=== PATIENT | female | born 1980 | race Caucasian/White ===

== ENCOUNTER 2016-07-28 01:22 | Emergency (ER) | payer BC ==
[2016-07-28 01:34] VITALS: BP 126/84
[2016-07-28] MEDS ORDERED: Ketorolac 60 MG/2 ML SDV IM ONE (01:35)
--- NOTE | 2016-07-28 02:12 | EDM.PDOC ---
ED HPI GENERAL MEDICAL PROBLEM - General Chief Complaint: Headache Stated Complaint: HEADACHE Time Seen by Provider: 07/28/16 02:10 - History of Present Illness INITIAL COMMENTS - FREE TEXT/NARRATIVE: HISTORY AND PHYSICAL: History of present illness: Patient 36-year-old female presents with headache his vaguely described associated fever chills nausea vomiting she denies trauma denies other concern is no history of migraine Review of systems: As per history of present illness and below otherwise all systems reviewed and negative. Past medical history: As per history of present illness and as reviewed below otherwise noncontributory. Surgical history: As per history of present illness and as reviewed below otherwise noncontributory. Social history: No reported history of drug or alcohol abuse. Family history: As per history of present illness and as reviewed below otherwise noncontributory. Physical exam: HEENT: Atraumatic, normocephalic, pupils reactive, negative for conjunctival pallor or scleral icterus, mucous membranes moist, throat clear, neck supple, nontender, trachea midline. Lungs: Clear to auscultation, breath sounds equal bilaterally, chest nontender. Heart: S1S2, regular, negative for clicks, rubs, or JVD. Abdomen: Soft, nondistended, nontender. Negative for masses or hepatosplenomegaly. Negative for costovertebral tenderness. Pelvis: Stable nontender. Genitourinary: Deferred. Rectal: Deferred. Extremities: Atraumatic, negative for cords or calf pain. Neurovascular unremarkable. Neuro: Awake, alert, oriented. Cranial nerves II through XII unremarkable. Cerebellum unremarkable. Motor and sensory unremarkable throughout. Exam nonfocal. Diagnostics: CT brain Therapeutics: None Impression: #1 cephalgia #2 maxillary sinus Definitive disposition and diagnosis as appropriate pending reevaluation and review of above. head Pain Score (Numeric/FACES): 8 - Related Data Allergies Allergy/AdvReac Type Severity Reaction Status Date / Time latex Allergy Itching Verified 07/28/16 01:26 Home Meds: Home Meds ClonazePAM [KlonoPIN] 0.5 mg PO BID 07/28/16 [History] Ferrous Sulfate [Iron] 325 mg PO DAILY 07/28/16 [History] Past Medical History HEENT History: Reports: None Cardiovascular History: Reports: None Respiratory History: Reports: None Gastrointestinal History: Reports: Celiac disease Genitourinary History: Reports: None DEATH CLAIM EXAMINER History: Reports: None Musculoskeletal History: Reports: None Neurological History: Reports: None Psychiatric History: Reports: Anxiety Hematologic History: Reports: Anemia Oncologic (Cancer) History: Reports: None Dermatologic History: Reports: None - Infectious Disease History Infectious Disease History: Reports: None - Past Surgical History Female Surgical History: Reports: None Social & Family History - Family History Family Medical History: Noncontributory - Tobacco Use Smoking Status *Q: Current Every Day Smoker Years of Tobacco use: 15 Packs/Tins Daily: 1 - Alcohol Use Days Per Week of Alcohol Use: 0 - Recreational Drug Use Recreational Drug Use: No ED ROS GENERAL - Review of Systems Review Of Systems: ROS reveals no pertinent complaints other than HPI. ED EXAM, GENERAL - Physical Exam Exam: See Below (See dictation) Course - Vital Signs Last Recorded V/S: Last Vital Signs Temp 36.9 C 07/28/16 01:28 Pulse 97 07/28/16 01:28 Resp 16 07/28/16 01:28 BP 126/84 07/28/16 01:28 Pulse Ox 97 07/28/16 01:28 - Orders/Labs/Meds Orders: Active Orders 24 hr Category Date Time Status Head wo Cont [CT] Stat Exams 07/28/16 01:35 Taken Meds: Medications Discontinued Medications Generic Name Dose Route Start Last Admin Trade Name Yokasta PRN Reason Stop Dose Admin Ketorolac Tromethamine 60 mg 07/28/16 01:35 07/28/16 01:41 Toradol IM 07/28/16 01:36 60 mg ONETIME ONE Administration Departure - Departure Time of Disposition: 02:11 Disposition: Home, Self-Care 01 Condition: good Clinical Impression: Maxillary sinusitis, Cephalgia Forms: ED Department Discharge Additional Instructions: The following information is given to patients seen in the emergency department who are being discharged to home. This information is to outline your options for follow-up care. We provide all patients seen in our emergency department with a follow-up referral. The need for follow-up, as well as the timing and circumstances, are variable depending upon the specifics of your emergency department visit. If you don't have a primary care physician on staff, we will provide you with a referral. We always advise you to contact your personal physician following an emergency department visit to inform them of the circumstance of the visit and for follow-up with them and/or the need for any referrals to a consulting specialist. The emergency department will also refer you to a specialist when appropriate. This referral assures that you have the opportunity for followup care with a specialist. All of these measure are taken in an effort to provide you with optimal care, which includes your followup. Under all circumstances we always encourage you to contact your private physician who remains a resource for coordinating your care. When calling for followup care, please make the office aware that this follow-up is from your recent emergency room visit. If for any reason you are refused follow-up, please contact the [facility] emergency department at and asked to speak to the emergency department charge nurse. [facility] [address] [place] [id number] Augmentin as prescribed follow up primary medical doctor or clinic above is discussed with her Tylenol as directed return as needed as discussed - My Orders Last 24 Hours: My Active Orders 07/28/16 01:35 Head wo Cont [CT] Stat - Assessment/Plan Last 24 Hours: My Active Orders 07/28/16 01:35 Head wo Cont [CT] Stat
--- NOTE | 2016-07-29 18:22 | CT ---
EXAM DATE: 07/28/16 PATIENT'S AGE: 36 Patient: DANICA ANNE Facility: [place], [place] Site . Site : 1980 Study: CT Head [id number] 2:01:17 AM Ordering Physician: Doctor Hernandez Final Report: INDICATION: Headache and dizziness TECHNIQUE: CT head without contrast. COMPARISON: None FINDINGS: CSF spaces: Within normal limits for age. Brain parenchyma: The butts-white differentiation is normal. No sign of mass, hemorrhage, or midline shift. Skull base and calvarium: Bilateral mild maxillary sinus mucosal thickening with obstruction of the ostiomeatal complexes. The visualized orbits are grossly unremarkable. No skull fractures. IMPRESSION: No intracranial abnormalities. Mild bilateral maxillary sinus mucosal thickening with obstruction of the ostiomeatal complexes. Dictated by Ozzy Almendarez MD @ 07/28/2016 2:04:04 AM Dictated by: Ozzy Almendarez MD @ 07/28/2016 02:04:30 (Electronic Signature) Report Signed by Proxy and Original Signed Document filed in the Medical Record. [facility]
== END 2016-07-28 02:38 | disposition home or self-care (01) ==
LOC: MW.ED 01:22
DX: J32.0 Chronic maxillary sinusitis (principal); R51 Headache; F41.9 Anxiety disorder, unspecified; F17.210 Nicotine dependence, cigarettes, uncomplicated; Z91.040 Latex allergy status; Z79.899 Other long term (current) drug therapy
CPT/HCPCS: 70450; 96372; 99284; J1885; 99283

== ENCOUNTER 2018-10-14 07:51 | Day surgery (SDC) | payer BC ==
[~2018-10-14 07:51] MED LIST: Glycopyrrolate 0.2 MG/ML SDV ONE; Lidocaine 2% 5 ML SDV ONE; Midazolam 1 MG/ML 2 ML SDV ONE; Neostigmine Methylsulfate 1 MG/ML 5 ML Syringe ONE; Ondansetron 4 MG/2 ML SDV ONE; Propofol 200 MG/20 ML SDV ONE; Rocuronium 100 MG/10 ML Syringe ONE; fentaNYL 250 MCG/5 ML SDV ONE
[2018-10-14] MEDS ORDERED: Ketorolac 10 MG Tab PO PRN (08:00)
[2018-10-14] MEDS ORDERED: ceFAZolin 1 GM in Premix Bag 1 BAG IV SCH (08:00)
[2018-10-14] MEDS ORDERED: Acetaminophen/HYDROcodone 325-10 MG Tab PO PRN (08:00)
[2018-10-14] MEDS ORDERED: fentaNYL 100 MCG/2 ML SDV IVPUSH PRN (08:34)
[2018-10-14] MEDS ORDERED: Albuterol 0.083% 2.5 MG/3 ML Neb Soln NEB PRN (08:34)
[2018-10-14] MEDS ORDERED: Atropine 0.1 MG/ML 10 ML Syringe IVPUSH PRN ×2 (08:34)
[2018-10-14] MEDS ORDERED: EPINEPHrine 1:10,000 1 MG/10 ML Syringe IVPUSH PRN (08:34)
[2018-10-14] MEDS ORDERED: Naloxone 0.4 MG/ML Syringe IVPUSH PRN (08:34)
[2018-10-14] MEDS ORDERED: 50% Dextrose in Water 50 ML Syringe IVPUSH PRN (08:34)
--- NOTE | 2018-10-14 08:47 | PCM.PREANE ---
Preanesthetic Assessment - Anesthesia/Transfusion/Family Hx Anesthesia History: Prior Anesthesia Without Reaction Family History of Anesthesia Reaction: No Transfusion History: No Prior Transfusion(s) - Review of Systems General: No Symptoms Pulmonary: No Symptoms Cardiovascular: No Symptoms Other: Reports: Anxiety - Physical Assessment NPO Status Date: 10/13/18 Height: 5 ft 5.5 in Weight: 72.575 kg ASA Class: 2 Mental Status: Alert & Oriented x3 Airway Class: Mallampati = 3 Dentition: Reports: Normal Dentition ROM/Head Extension: Full Lungs: Clear to Auscultation, Normal Respiratory Effort Cardiovascular: Regular Rate, Regular Rhythm - Allergies Allergies/Adverse Reactions: Allergies Allergy/AdvReac Type Severity Reaction Status Date / Time latex Allergy Itching Verified 10/08/18 10:11 - Blood Blood Available: No - Anesthesia Plan Pre-Op Medication Ordered: None - Acknowledgements Anesthesia Type Planned: General Anesthesia Pt an Appropriate Candidate for the Planned Anesthesia: Yes Alternatives and Risks of Anesthesia Discussed w Pt/Guardian: Yes Pt/Guardian Understands and Agrees with Anesthesia Plan: Yes Additional Comments: PMH: smoker, celiac dz, ADHD, anxiety, latex sensative PLAN: get, consider ICS block post op if needed. PreAnesthesia Questionnaire HEENT History: Reports: Other (See Below) Other HEENT History: wears glasses/contacts Cardiovascular History: Reports: None Respiratory History: Reports: None Gastrointestinal History: Reports: Celiac Disease Genitourinary History: Reports: None MANAGER DISTRIBUTION History: Reports: Musculoskeletal History: Reports: None Neurological History: Reports: None Psychiatric History: Reports: ADD, Anxiety Endocrine/Metabolic History: Reports: None Hematologic History: Reports: Anemia Immunologic History: Reports: None Oncologic (Cancer) History: Reports: None Dermatologic History: Reports: None - Infectious Disease History Infectious Disease History: Reports: None - Past Surgical History Head Surgeries/Procedures: Reports: None HEENT Surgical History: Reports: None Cardiovascular Surgical History: Reports: None Respiratory Surgical History: Reports: None GI Surgical History: Reports: None Female Surgical History: Reports: Section, Other (See Below) Other Female Surgeries/Procedures: c/section x2, laparotomy for ovarian cystectomy Endocrine Surgical History: Reports: None Neurological Surgical History: Reports: Lumbar Spine Other Neurological Surgeries/Procedures: back surgery x4 Musculoskeletal Surgical History: Reports: Other (See Below) Other Musculoskeletal Surgeries/Procedures:: brandon foot surgery Oncologic Surgical History: Reports: None Dermatological Surgical History: Reports: None - SUBSTANCE USE Smoking Status *Q: Current Every Day Smoker Tobacco Use Within Last Twelve Months: Cigarettes Days Per Week of Alcohol Use: 5 Number of Drinks Per Day: 2 Total Drinks Per Week: 10 Recreational Drug Use History: No - HOME MEDS Home Medications: Home Meds ClonazePAM [KlonoPIN] 0.5 mg PO BID PRN 07/28/16 [History] Dextroamphetamine/Amphetamine [Adderall 5 mg Tablet] 2 tab PO DAILY 10/08/18 [ History] traMADol HCl [Tramadol HCl] 1 - 2 tab PO ASDIRECTED PRN 10/08/18 [History] Multivitamin [Multivitamins] 1 tab PO DAILY 10/14/18 [History] Naproxen 2 tab PO BID PRN 10/14/18 [History] - CURRENT (IN HOUSE) MEDS Current Meds: Current Medications Hydrocodone Bitart/Acetaminophen (Battiest 325-10 Mg) 1 - 2 tab PO Q4H PRN PRN Reason: Pain Albuterol (Proventil Neb Soln) 2.5 mg NEB ONETIME PRN PRN Reason: Wheezing Atropine Sulfate (Atropine 0.1 Mg/Ml) 0.5 mg IVPUSH ASDIRECTED PRN PRN Reason: Hypo-perfusion Atropine Sulfate (Atropine 0.1 Mg/Ml) 1 mg IVPUSH ASDIRECTED PRN PRN Reason: Hypo-Perfusion Dextrose/Water (Dextrose 50% In Water) 50 ml IVPUSH ASDIRECTED PRN PRN Reason: Hypoglycemia Epinephrine HCl (Epinephrine 1:10,000) 1 mg IVPUSH ASDIRECTED PRN PRN Reason: ACLS Guidelines Fentanyl (Sublimaze) 50 - 100 mcg IVPUSH Q5M PRN PRN Reason: Pain Cefazolin Sodium/Dextrose 1 gm (/ Premix) 50 mls @ 100 mls/hr IV ONCALL VENITA Ketorolac Tromethamine (Toradol) 10 mg PO Q6H PRN PRN Reason: Pain Stop: 10/19/18 08:01 Naloxone HCl (Narcan) 0.1 mg IVPUSH ASDIRECTED PRN PRN Reason: Respiratory Depression Discontinued Medications Fentanyl (Sublimaze) Confirm Administered Dose 250 mcg .ROUTE .STK-MED ONE Stop: 10/14/18 06:52 Glycopyrrolate (Robinul) Confirm Administered Dose 0.4 mg .ROUTE .STK-MED ONE Stop: 10/14/18 06:51 Lidocaine (Xylocaine-Mpf 2%) Confirm Administered Dose 5 ml .ROUTE .STK-MED ONE Stop: 10/14/18 06:51 Midazolam HCl (Versed 1 Mg/Ml) Confirm Administered Dose 2 mg .ROUTE .STK-MED ONE Stop: 10/14/18 06:52 Neostigmine Methylsulfate (Neostigmine) Confirm Administered Dose 5 mg .ROUTE .STK-MED ONE Stop: 10/14/18 06:51 Ondansetron HCl (Zofran) Confirm Administered Dose 4 mg .ROUTE .STK-MED ONE Stop: 10/14/18 06:51 Propofol (Diprivan 20 Ml) Confirm Administered Dose 200 mg .ROUTE .STK-MED ONE Stop: 10/14/18 06:52 Rocuronium [place] (Zemuron) Confirm Administered Dose 100 mg .ROUTE .STK-MED ONE Stop: 10/14/18 06:51
[2018-10-14] MEDS ORDERED: Sodium Chloride 0.9% 20 ML ONE (09:46)
[2018-10-14] MEDS ORDERED: ceFAZolin 1 GM Vial ONE (09:46)
[2018-10-14] MEDS ORDERED: Lactated Ringers 1,000 ML IV SCH (10:45)
--- NOTE | 2018-10-14 10:46 | PCM.OPNOTE ---
- General Post-Op/Procedure Note Date of Surgery/Procedure: 10/14/18 Operative Procedure(s): R shoulder scope with extensive synovectomy and SAD Post-Op Diagnosis: R shoulder impingement, R shoulder biceps tenotomy, R shoulder anterior labral tear Anesthesia Technique: General ET Tube Primary Surgeon: Pamella Bales Steam Hammer Operator: Leslie Mandujano in mLs: 5 Condition: Good Free Text/Narrative:: #[id number]
[2018-10-14] MEDS ORDERED: HYDROmorphone 2 MG/ML Syringe IVPUSH ONE (11:06)
[2018-10-14] MEDS ORDERED: HYDROmorphone 2 MG/ML SDV IVPUSH ONE (11:08)
[2018-10-14] MEDS ORDERED: Ketorolac 30 MG/ML SDV IVPUSH ONE (11:09)
[2018-10-14] MEDS ORDERED: Acetaminophen 1,000 MG in Premix Bag 1 BAG IV ONE (11:09)
[2018-10-14] MEDS ORDERED: Ketamine 500 mg/10 ML MDV IV PRN (11:10)
[2018-10-14] MEDS ORDERED: Ketamine 500 mg/10 ML MDV ONE (11:14)
[2018-10-14] MEDS ORDERED: Ketorolac 30 MG/ML SDV ONE (11:14)
[2018-10-14] MEDS ORDERED: Dexamethasone 4 MG/ML 5 ML MDV ONE (11:44)
[2018-10-14] MEDS ORDERED: Bupivacaine 0.5% 30 ML SDV ONE (11:45)
--- NOTE | 2018-10-14 12:07 | PCM.SN ---
- Free Text/Narrative Note: procedure note: ISB block plced in PACu for post op pain. Pain poorly controlled with dilaudid, tylenol, toradol and ketamine. Pt had been given discussion about risks and benefits of block before surgery. Pt chooses to have a block placed now. Verbal consent obtained, time out performed, skin antisepsis with alcohol, local anesthesia with lidocaine skin wheel. Block needle placed with good twitch extinguishing at <.38. Dosed in 5 ml increments of 0.5% bupivicaine wih dexamethasone. Total volume of 25 ml 0.5% bupiv plus 8 mg dexamethasone. Pt received immediate relief. No comps.
--- NOTE | 2018-10-14 12:55 | PCM.POSTAN ---
POST ANESTHESIA ASSESSMENT - MENTAL STATUS Mental Status: Alert (No anesthesia complications), Oriented - RESPIRATORY Respiratory Status: Respiratory Rate WNL, Airway Patent, O2 Saturation Stable, Elevated Respiratory Rate - CARDIOVASCULAR CV Status: Pulse Rate WNL, Blood Pressure Stable, Elevated Pulse Rate - GASTROINTESTINAL GI Status: No Symptoms - POST OP HYDRATION Hydration Status: Adequate & Stable
--- NOTE | 2018-10-14 14:28 | PCM48HPAN ---
Post Anesthesia Note - EVALUATION WITHIN 48HRS OF ANESTHETIC Vital Signs in Normal Range: Yes Patient Participated in Evaluation: Yes Respiratory Function Stable: Yes Airway Patent: Yes Cardiovascular Function Stable: Yes Hydration Status Stable: Yes Pain Control Satisfactory: Yes Nausea and Vomiting Control Satisfactory: Yes Mental Status Recovered: Yes Resp Rate: 16 - COMMENTS/OBSERVATIONS Free Text/Narrative:: No anesthesia concerns noted.
--- NOTE | 2018-10-14 15:23 | OR ---
SURGEON: Pamella Bales MD DATE OF PROCEDURE: 10/14/2018 PREOPERATIVE DIAGNOSIS: Right shoulder impingement. POSTOPERATIVE DIAGNOSES: 1. Right shoulder impingement. 2. Right shoulder biceps tendinitis. 3. Right shoulder degenerative anterior labral tear. 4. Right shoulder partial rotator cuff tear. PROCEDURE PERFORMED: Right shoulder arthroscopy with: 1. Subacromial decompression with release of coracoacromial ligament and acromioplasty. 2. Extensive debridement including debridement of degenerative anterior labral tear and biceps tenotomy. PRIMARY SURGEON: Pamella Bales MD CONTACT LENS MANUFACTURER: Leslie Mandujano PA-C ANESTHESIA: General. ESTIMATED BLOOD LOSS: 5 mL. TOURNIQUET TIME: 0 minutes. COMPLICATIONS: None. DEEP VENOUS THROMBOSIS PROPHYLAXIS: PAS boots to bilateral lower extremities. IMPLANTS USED: None. BRIEF HISTORY: Criselda is a 38-year-old female who has been bothered by persistent right shoulder pain. She had failed conservative treatment. Due to her lack of response to conservative treatment, I did recommend surgical intervention. The risks and goals of the procedure were discussed with the patient and were documented preoperatively. She agreed to proceed. DESCRIPTION OF PROCEDURE: The patient was properly identified and brought to the operating room. She was transferred from the OR cart and placed on the operating table in the supine position. General anesthesia was administered. After adequate anesthesia was obtained, the patient was placed into a beach-chair position. Care was taken to pad all bony prominences. Her head was secured. The right upper extremity was then prepped in standard fashion using ChloraPrep solution. It was then sterilely draped. A time-out was performed to ensure correct site and procedure. Preoperative antibiotics were given. The surgical site had been marked preoperatively. A marking pen was used to identify the bony landmarks. Approximately 30 mL of normal saline was introduced into the glenohumeral joint. A posterior portal was established. Blunt trocar and cannula were introduced into the glenohumeral joint. Camera, inflow, and outflow were assembled. The rotator interval was inspected. No significant synovitis was found. The subscapularis was also visualized and appeared to be intact. An anterior portal was then established. The subscapularis was probed, and no tearing was noted. No loose bodies were present within the subscapular recess. The biceps was then inspected. There was some degenerative fraying along the anterior labrum at the insertion point of the biceps tendon. The biceps tendon was pulled into the joint, and extensive synovitis was noted along the tendon distally. I elected to proceed with a biceps tenotomy. Electrocautery was used to amputate the biceps tendon at its insertion on the glenoid labrum. The biceps retracted easily into the tendon sheath. The anterior labral tear was smoothed using electrocautery. The remainder of the labrum appeared intact. Posterior labrum also appeared intact. The joint surfaces showed no significant signs of degenerative changes. There was an area of nearly full-thickness cartilage loss along the anterior aspect of the humeral head which measured approximately 5 mm x 5 mm. This did have a small layer of overlying cartilage, and it was probed. No loose cartilage was noted. The axillary pouch showed no loose bodies. The arm was then brought into an abducted and externally rotated position. The bare area was noted posteriorly. As I progressed forward, there was good insertion of the rotator cuff into the humerus. There was a small area of partial-thickness tearing along the anterior aspect of the supraspinatus tendon which measured approximately 2 mm. This was debrided with electrocautery, and no further tearing was noted. The arm was then brought back into a neutral position. The blunt trocar and cannula were introduced into the subacromial space. A lateral portal was established. She did have extensive bursitis. Using a combination of electrocautery and the shaver, an extensive bursectomy was performed. This provided good visualization of the underlying rotator cuff. This was extensively probed, and no tearing, softening, or thinning was noted. The coracoacromial ligament was then released off the anterior border of the acromion. The acromion appeared to be causing quite a bit of impingement as there was some bursal-sided fraying of the rotator cuff tendons. I elected to proceed with an acromioplasty. A 5.0 mm leslie was then introduced. An acromioplasty was performed without difficulty. At the completion, there was good decompression of the subacromial space. Instruments were then removed from the shoulder. The portal sites were closed with 3-0 nylon. Xeroform gauze was placed over the wound, and a bulky dressing was applied. She was placed into a shoulder sling. She was awakened from her anesthetic and transferred back to the operating room cart. She was brought to the recovery room in stable condition. All needle and sponge counts were correct. MARCELLE / ERIC /[id number]
[2018-10-14 15:48] VITALS: BP 109/65
== END 2018-10-14 14:30 | disposition home or self-care (01) ==
LOC: MW.SDS 07:51
PROVIDERS: ATTEND Orthopaedic Surgery
DX: S43.491A Other sprain of right shoulder joint, initial encounter (principal); M75.21 Bicipital tendinitis, right shoulder; M25.811 Other specified joint disorders, right shoulder; G89.18 Other acute postprocedural pain; M75.111 Incomplete rotator cuff tear or rupture of right shoulder, not specified as traumatic; F17.210 Nicotine dependence, cigarettes, uncomplicated; F41.9 Anxiety disorder, unspecified; Z79.899 Other long term (current) drug therapy
CPT/HCPCS: 29823; 64415; 81025; 88304; J0131; J0690; J1100; J2001; J2250; J2405; J2704; J3010; J3490; J7120

== ENCOUNTER 2021-01-14 10:16 | Emergency (ER) | payer SELFPAY ==
[2021-01-14] MEDS ORDERED: Sodium Chloride 0.9% 2.5 ML Syringe FLUSH PRN (10:34)
[2021-01-14] MEDS ORDERED: Sodium Chloride 0.9% 10 ML Syringe FLUSH PRN (10:34)
[2021-01-14] MEDS ORDERED: HYDROmorphone 2 MG/ML Syringe IVPUSH ONE (11:14)
[2021-01-14] MEDS ORDERED: Ondansetron 4 MG/2 ML SDV IVPUSH ONE (11:15)
[2021-01-14 11:34] LABS: CARBON DIOXIDE,CO2 23.2 mmol/L (21.0-32.0); POTASSIUM,K 3.8 mmol/L (3.5-5.1)
[2021-01-14] MEDS ORDERED: Ketorolac 30 MG/ML SDV IVPUSH ONE (11:36)
[2021-01-14] MEDS ORDERED: Iopamidol 755 MG/ML 500 ML Multipack Bottle IVPUSH ONE (12:09)
--- NOTE | 2021-01-14 12:31 | CT ---
INDICATION: Lower abdominal/pelvic pain. TECHNIQUE: CT abdomen and pelvis with intravenous contrast, 100 mL of Isovue-370. Coronal and sagittal reformats. COMPARISON: CT 03/05/2017. FINDINGS: The imaged lower chest is unremarkable. Normal liver contour. Mild focal fatty deposition along the falciform ligament. No suspicious hepatic lesion. Portal vein is patent. No biliary dilatation. The gallbladder, pancreas, spleen, and adrenals are unremarkable. Symmetric renal enhancement. No hydronephrosis bilaterally. Mild urinary bladder wall thickening versus underdistention. Anteverted uterus with IUD in place. The bowel appears normal in caliber and enhancement diffusely. No free air, free fluid, focal collection, or lymphadenopathy. Normal caliber abdominal aorta. Major branch vessels are patent. Status post L4-S1 spinal fusion. No suspicious osseous lesion. IMPRESSION: 1. Mild urinary bladder wall thickening versus underdistention. Correlate for clinical evidence of cystitis. 2. No additional acute findings. Dictated by Giancarlo Juarez MD @ 01/14/2021 12:27:46 PM Please note that all CT scans at this facility use dose modulation, iterative reconstruction, and/or weight-based dosing when appropriate to reduce radiation dose to as low as reasonably achievable. Dictated by: Giancarlo Juarez MD @ 01/14/2021 12:28:45 (Electronically Signed)
--- NOTE | 2021-01-14 13:48 | US ---
CLINICAL HISTORY: Pelvic pain concern of IUD placement TECHNIQUE: Real time, butts scale images were acquired of the pelvis using a transabdominal and transvaginal approach. Color Doppler analysis was performed of the ovaries. FINDINGS: Uterus measures 7 x 4.7 x 3.3 centimeters. Endometrial stripe measures 4 millimeters. IUD in the endometrial cavity in a satisfactory position. Bilateral ovaries appear unremarkable. Right ovary measures 3 x 2.3 x 2.3 centimeters left ovary measures 1.9 x 2 x 1.7 cm. Normal blood flow to the right ovary and the left ovary. No free fluid seen. No adnexal mass. IMPRESSION: 1. IUD in the endometrial cavity in satisfactory position. Unremarkable pelvic ultrasound. Dictated by Magnolia Song MD @ 01/14/2021 1:01:01 PM (Electronically Signed)
--- NOTE | 2021-01-14 14:20 | EDM.PDOC ---
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 Patient states that she began having this pinching sensation around her urethra and feels as if her IUD is embedded in this area. Patient states she has thought this as when she got the IUD inserted it was painful and states that she has had prior IUD insertions that were not painful. Patient states that she began having this pinching sensation around her urethra and states that she can "feel her IUD "embedded in her urethra. Patient denies any change in vaginal discharge. Patient states she has had the same sexual partner for 9 months and did have an STD testing when she had the IUD insertion that was negative for gonorrhea and chlamydia so does not feel that this is what is her issue. Patient denies any other symptoms or concerns or any other resuscitative symptoms. Patient denies fever, chills, chest pain, shortness of breath, or cough. Denies headache, neck stiff ness, change in vision, syncope, or near syncope. Denies nausea, vomiting, diarrhea, constipation, or dysuria. Has not noted any blood in urine or stool. Patient has been eating and drinking appropriately. Review of systems: As per history of present illness and below otherwise all systems reviewed and negative. Past medical history: As per history of present illness and as reviewed below otherwise noncontributory. Surgical history: As per history of present illness and as reviewed below otherwise noncontributory. Social history: See social history for further information Family history: As per history of present illness and as reviewed below otherwise noncontributory. Physical exam: General: Patient is alert, oriented, and in no acute distress. Patient sitting comfortably on exam table. Vitals stable and reviewed by me HEENT: Atraumatic, normocephalic, pupils equal and reactive bilaterally, negative for conjunctival pallor or scleral icterus, mucous membranes moist, TMs normal bilaterally, throat clear, neck supple, nontender, trachea midline. No drooling or trismus noted. No meningeal signs. No hot potato voice noted. Lungs: Clear to auscultation, breath sounds equal bilaterally, chest nontender. Heart: S1S2, regular rate and rhythm without overt murmur Abdomen: Soft, nondistended, moderate left lower quadrant tenderness without guarding, negative rebound, negative [place]. Negative for masses or hepatosplenomegaly. Negative for costovertebral tenderness. Pelvis: Stable nontender. Genitourinary: Supervisor [employer] Process at bedside Daniela Rey RN. There is a small 1 to 2 mm genital lesion at the right side of her labia minora that is tender to palpation. Patient does have generalized pain to palpation surrounding her uret hra but otherwise unremarkable. Patient does have a small amount of blood- tinged vaginal discharge in the vaginal vault with IUD string seen coming from cervical os. Negative cervical motion tenderness. Uterus is nontender. No adnexal mass. Rectal: Deferred. Skin: Intact, warm, dry. No lesions or rashes noted. Extremities: Atraumatic, negative for cords or calf pain. Neurovascular unremarkable. Neuro: Awake, alert, oriented. Cranial nerves II through XII unremarkable. Cerebellum unremarkable. Motor and sensory unremarkable throughout. Exam nonfocal. Notes: Patient is a 40-year-old female who presents emergency room today secondary to lower abdominal pain/cramping and concern of her IUD being embedded worsening over the past 2 days. Upon arrival to the ED, patient is noted to be mildly tachycardic 105 on exam, otherwise vitally stable and reviewed by me. On genitourinary exam, patient does have a small 1 to 2 mm in the genital lesion at the right of her labia minora that is tender to palpation and nonspecific at this time. I did swab this area for possible HSV infection. Patient does note "pain around her urethra, but I do not appreciate any additional findings. IUD string noted on exam. Patient does have a small amount of white/blood-tinged vaginal discharge on exam with negative cervical motion tenderness and uterine is nontender. Patient does have moderate LLQ pain on exam. Mild derangements of CBC are unremarkable. CMP shows mild hyponatremia of 135, mild elevation of creatinine at 1.1 and BUN of 23, otherwise CMP unremarkable. Lipase within normal limits, hCG is negative. Urinalysis is clear of infection. Affirm is negative. Endovaginal ultrasound shows the IUD is in the endometrial cavity in satisfactory position. Otherwise unremarkable pelvic ultrasound. Abdominal pelvic CT shows mild urinary bladder wall thickening versus underdistention. Correlate for clinical cystitis. No additional acute findings. Given patient's urinalysis is clear likely under distention. Upon reevaluation of patient, she does have improvement of her symptoms with therapeutics given today in the emergency room and mild tachycardia has resolved to within normal limits.. At this time, gonorrhea and chlamydia, HSV pending. Given that patient does have 1 small genital lesion that is painful on exam, will treat empirically for possible HSV infection. Strict return precautions thoroughly discussed with patient. Discussed importance for follow-up with a primary care provider and women's health care provider. Voices understanding and is agreeable to plan of care. Denies any further questions or concerns at this time. Diagnostics: CBC, CMP, hCG, lipase, urinalysis, affirm, gonorrhea and chlamydia, HSV, transvaginal ultrasound, abdominal pelvic CT scan with contrast Therapeutics: Dilaudid, Toradol, Zofran Prescription: Acyclovir Impression: Abdominal pain Genital lesion, unspecified Plan: 1. Take medication as prescribed. You can alternate ibuprofen and Tylenol as directed for pain and discomfort. 2. Follow-up with a primary care provider and women's health care provider as discussed. Return to the ED as needed and as discussed. Definitive disposition and diagnosis as appropriate pending reevaluation and review of above. Abdomen Pain Score (Numeric/FACES): 10 - Related Data Allergies Allergy/AdvReac Type Severity Reaction Status Date / Time latex Allergy Itching Verified 01/14/21 10:47 Home Meds: Home Meds ClonazePAM [KlonoPIN] 0.5 mg PO BID PRN 07/28/16 [History] Dextroamphetamine/Amphetamine [Adderall 5 mg Tablet] 2 tab PO DAILY 10/08/18 [History] traMADol HCl [Tramadol HCl] 1 - 2 tab PO ASDIRECTED PRN 10/08/18 [History] Acetaminophen/HYDROcodone [[place] 325-10 MG] 1 - 2 tab PO Q4H PRN #60 tablet 10/14/18 [Rx] Ketorolac [Toradol] 10 mg PO Q6H PRN #20 tablet 10/14/18 [Rx] Multivitamin [Multivitamins] 1 tab PO DAILY 10/14/18 [History] Naproxen 2 tab PO BID PRN 10/14/18 [History] Acyclovir 400 mg PO TID 10 Days #30 tablet 01/14/21 [Rx] Past Medical History - Past Health History Medical/Surgical History: Denies Medical/Surgical History HEENT History: Reports: Other (See Below) Other HEENT History: wears glasses/contacts Cardiovascular History: Reports: None Respiratory History: Reports: None Gastrointestinal History: Reports: Celiac Disease Genitourinary History: Reports: None [employer]PER History: Reports: Musculoskeletal History: Reports: None Neurological History: Reports: None Psychiatric History: Reports: ADD, Anxiety Endocrine/Metabolic History: Reports: None Hematologic History: Reports: Anemia Immunologic History: Reports: None Oncologic (Cancer) History: Reports: None Dermatologic History: Reports: None - Infectious Disease History Infectious Disease History: Reports: None - Past Surgical History Head Surgeries/Procedures: Reports: None HEENT Surgical History: Reports: None Cardiovascular Surgical History: Reports: None Respiratory Surgical History: Reports: None GI Surgical History: Reports: None Female Surgical History: Reports: Section, Other (See Below) Other Female Surgeries/Procedures: c/section x2, laparotomy for ovarian cystectomy Endocrine Surgical History: Reports: None Neurological Surgical History: Reports: Lumbar Spine Other Neurological Surgeries/Procedures: back surgery x4 Musculoskeletal Surgical History: Reports: Other (See Below) Other Musculoskeletal Surgeries/Procedures:: brandon foot surgery Oncologic Surgical History: Reports: None Dermatological Surgical History: Reports: None Social & Family History - Family History Family Medical History: No Pertinent Family History - Tobacco Use Tobacco Use Status *Q: Never Tobacco User Second Hand Smoke Exposure: No - Caffeine Use Caffeine Use: Reports: None - Recreational Drug Use Recreational Drug Use: No ED ROS GENERAL - Review of Systems Review Of Systems: Comprehensive ROS is negative, except as noted in HPI. ED EXAM, GENERAL - Physical Exam Exam: See Below (see dictation) Course - Vital Signs Last Recorded V/S: Last Vital Signs Temp 97 F 01/14/21 14:30 Pulse 71 01/14/21 14:30 Resp 20 01/14/21 14:30 BP 126/72 01/14/21 14:30 Pulse Ox 99 01/14/21 14:30 - Orders/Labs/Meds Orders: Active Orders 24 hr Category Date Time Status CHLAMYDIA AND GONORRHEA BY TMA Stat Lab 01/14/21 14:15 Received HSV 1 AND 2-SPEC AB, IGG W/RFX [REF] Stat Lab 01/14/21 11:00 Received HSV AMPLIFIED MOLECULAR [MREF] Stat Lab 01/14/21 14:37 Received Saline Lock Insert [OM.PC] Stat Oth 01/14/21 10:34 Ordered Labs: Laboratory Tests 01/14/21 01/14/21 01/14/21 Range/Units 11:00 11:00 11:00 WBC 9.70 (4.0-11.0) K/uL RBC 4.44 (4.30-5.90) M/uL Hgb 14.8 (12.0-16.0) g/dL Hct 42.0 (36.0-46.0) % MCV 94.6 (80.0-98.0) fL MCH 33.3 H (27.0-32.0) pg MCHC 35.2 (31.0-37.0) g/dL RDW Std Deviation 42.7 (28.0-62.0) fl RDW Coeff of Ezra 12 (11.0-15.0) % Plt Count 306 (150-400) K/uL MPV 9.50 (7.40-12.00) fL Neut % (Auto) 61.1 (48.0-80.0) % Lymph % (Auto) 26.3 (16.0-40.0) % [place] % (Auto) 10.0 (0.0-15.0) % Eos % (Auto) 2.1 (0.0-7.0) % Baso % (Auto) 0.5 (0.0-1.5) % Neut # (Auto) 5.9 H (1.4-5.7) K/uL Lymph # (Auto) 2.6 H (0.6-2.4) K/uL [place] # (Auto) 1.0 H (0.0-0.8) K/uL Eos # (Auto) 0.2 (0.0-0.7) K/uL Baso # (Auto) 0.1 (0.0-0.1) K/uL Nucleated RBC % 0.0 /100WBC Nucleated RBCs # 0 K/uL Sodium 135 L (136-145) mmol/L Potassium 3.8 (3.5-5.1) mmol/L Chloride 100 (98-107) mmol/L Carbon Dioxide 23.2 (21.0-32.0) mmol/L BUN 23 H (7.0-18.0) mg/dL Creatinine 1.1 H (0.6-1.0) mg/dL Est Cr Clr Drug Dosing 64.28 mL/min Estimated GFR (MDRD) 55.3 ml/min Glucose 88 (74-106) mg/dL Calcium 9.1 (8.5-10.1) mg/dL Total Bilirubin 0.3 (0.2-1.0) mg/dL AST 18 (15-37) IU/L ALT 23 (14-63) IU/L Alkaline Phosphatase 83 (46-116) U/L Total Protein 7.6 (6.4-8.2) g/dL Albumin 3.8 (3.4-5.0) g/dL Globulin 3.8 (2.6-4.0) g/dL Albumin/Globulin Ratio 1.0 (0.9-1.6) Lipase 88 (73-393) U/L HCG, Qual NEGATIVE (NEG) Urine Color Urine Appearance Urine pH (5.0-8.0) Ur Specific [place] (1.001-1.035) Urine Protein (NEGATIVE) mg/dL Urine Glucose (UA) (NEGATIVE) mg/dL Urine Ketones (NEGATIVE) mg/dL Urine Occult Blood (NEGATIVE) Urine Nitrite (NEGATIVE) Urine Bilirubin (NEGATIVE) Urine Urobilinogen (<2.0) EU/dL Ur Leukocyte Esterase (NEGATIVE) Diana species DNA (NEGATIVE) [place] DNA Probe (NEGATIVE) Trichomonas DNA Probe (NEGATIVE) 01/14/21 01/14/21 Range/Units 11:40 14:15 WBC (4.0-11.0) K/uL RBC (4.30-5.90) M/uL Hgb (12.0-16.0) g/dL Hct (36.0-46.0) % MCV (80.0-98.0) fL MCH (27.0-32.0) pg MCHC (31.0-37.0) g/dL RDW Std Deviation (28.0-62.0) fl RDW Coeff of Ezra (11.0-15.0) % Plt Count (150-400) K/uL MPV (7.40-12.00) fL Neut % (Auto) (48.0-80.0) % Lymph % (Auto) (16.0-40.0) % [place] % (Auto) (0.0-15.0) % Eos % (Auto) (0.0-7.0) % Baso % (Auto) (0.0-1.5) % Neut # (Auto) (1.4-5.7) K/uL Lymph # (Auto) (0.6-2.4) K/uL [place] # (Auto) (0.0-0.8) K/uL Eos # (Auto) (0.0-0.7) K/uL Baso # (Auto) (0.0-0.1) K/uL Nucleated RBC % /100WBC Nucleated RBCs # K/uL Sodium (136-145) mmol/L Potassium (3.5-5.1) mmol/L Chloride (98-107) mmol/L Carbon Dioxide (21.0-32.0) mmol/L BUN (7.0-18.0) mg/dL Creatinine (0.6-1.0) mg/dL Est Cr Clr Drug Dosing mL/min Estimated GFR (MDRD) ml/min Glucose (74-106) mg/dL Calcium (8.5-10.1) mg/dL Total Bilirubin (0.2-1.0) mg/dL AST (15-37) IU/L ALT (14-63) IU/L Alkaline Phosphatase (46-116) U/L Total Protein (6.4-8.2) g/dL Albumin (3.4-5.0) g/dL Globulin (2.6-4.0) g/dL Albumin/Globulin Ratio (0.9-1.6) Lipase (73-393) U/L HCG, Qual (NEG) Urine Color YELLOW Urine Appearance CLEAR Urine pH 6.0 (5.0-8.0) Ur Specific [place] 1.010 (1.001-1.035) Urine Protein NEGATIVE (NEGATIVE) mg/dL Urine Glucose (UA) NEGATIVE (NEGATIVE) mg/dL Urine Ketones NEGATIVE (NEGATIVE) mg/dL Urine Occult Blood NEGATIVE (NEGATIVE) Urine Nitrite NEGATIVE (NEGATIVE) Urine Bilirubin NEGATIVE (NEGATIVE) Urine Urobilinogen 0.2 (<2.0) EU/dL Ur Leukocyte Esterase NEGATIVE (NEGATIVE) Diana species DNA NEGATIVE (NEGATIVE) [place] DNA Probe NEGATIVE (NEGATIVE) Trichomonas DNA Probe NEGATIVE (NEGATIVE) Meds: Medications Discontinued Medications Generic Name Dose Route Start Last Admin Trade Name Freq PRN Reason Stop Dose Admin Hydromorphone HCl 0.5 mg 01/14/21 11:14 01/14/21 11:44 Hydromorphone 2 Mg/Ml Syringe IVPUSH 01/14/21 11:15 0.5 mg ONETIME ONE Administration Iopamidol 100 ml 01/14/21 12:09 01/14/21 12:09 Iopamidol 755 Mg/Ml 500 Ml Multipack Bottle IVPUSH 01/14/21 12:10 100 ml ONETIME ONE Administration Ketorolac Tromethamine 30 mg 01/14/21 11:36 01/14/21 12:26 Ketorolac 30 Mg/Ml Sdv IVPUSH 01/14/21 11:37 30 mg ONETIME ONE Administration Ondansetron HCl 4 mg 01/14/21 11:15 01/14/21 11:46 Ondansetron 4 Mg/2 Ml Sdv IVPUSH 01/14/21 11:16 4 mg ONETIME ONE Administration Sodium Chloride 10 ml 01/14/21 10:34 01/14/21 11:46 Sodium Chloride 0.9% 10 Ml Syringe FLUSH 10 ml ASDIRECTED PRN Administration Keep Vein Open Sodium Chloride 2.5 ml 01/14/21 10:34 01/14/21 11:46 Sodium Chloride 0.9% 2.5 Ml Syringe FLUSH 2.5 ml ASDIRECTED PRN Administration Keep Vein Open Departure - Departure Time of Disposition: 14:17 Disposition: Home, Self-Care 01 Clinical Impression: Genital lesion, female Abdominal pain Qualifiers: Abdominal location: lower abdomen, unspecified Qualified Code(s): R10.30 - Lower abdominal pain, unspecified - Discharge Information Prescriptions: Acyclovir 400 mg PO TID 10 Days #30 tablet Instructions: Abdominal Pain, Adult, [id number] Referrals: Tisha Tabares NP [Primary Care Provider] - Forms: ED Department Discharge Additional Instructions: The following information is given to patients seen in the emergency department who are being discharged to home. This information is to outline your options for follow-up care. We provide all patients seen in our emergency department with a follow-up referral. The need for follow-up, as well as the timing and circumstances, are variable depending upon the specifics of your emergency department visit. If you don't have a primary care physician on staff, we will provide you with a referral. We always advise you to contact your personal physician following an emergency department visit to inform them of the circumstance of the visit and for follow-up with them and/or the need for any referrals to a consulting specialist. The emergency department will also refer you to a specialist when appropriate. This referral assures that you have the opportunity for follow-up care with a specialist. All of these measure are taken in an effort to provide you with optimal care, which includes your follow-up. Under all circumstances we always encourage you to contact your private physician who remains a resource for coordinating your care. When calling for follow-up care, please make the office aware that this follow-up is from your recent emergency room visit. If for any reason you are refused follow-up, please contact the [facility] at and asked to speak to the emergency department charge nurse. [facility] [address] [place], [place] [id number] [address] [address] [facility] [address] [place] [address] 1. Take medication as prescribed. You can alternate ibuprofen and Tylenol as directed for pain and discomfort. 2. Follow-up with a primary care provider and women's health care provider as discussed. Return to the ED as needed and as discussed. Sepsis Event Note (ED) - Evaluation Sepsis Screening Result: No Definite Risk - Focused Exam Vital Signs: Vital Signs Temp Pulse Resp BP Pulse Ox 01/14/21 14:30 97 F 71 20 126/72 99 01/14/21 10:44 99.2 F 105 H 22 H 133/100 H 96 - My Orders Last 24 Hours: My Active Orders 01/14/21 10:34 Saline Lock Insert [OM.PC] Stat 01/14/21 11:00 HSV 1 AND 2-SPEC AB, IGG W/RFX [REF] Stat 01/14/21 14:15 CHLAMYDIA AND GONORRHEA BY TMA Stat 01/14/21 14:37 HSV AMPLIFIED MOLECULAR [MREF] Stat - Assessment/Plan Last 24 Hours: My Active Orders 01/14/21 10:34 Saline Lock Insert [OM.PC] Stat 01/14/21 11:00 HSV 1 AND 2-SPEC AB, IGG W/RFX [REF] Stat 01/14/21 14:15 CHLAMYDIA AND GONORRHEA BY TMA Stat 01/14/21 14:37 HSV AMPLIFIED MOLECULAR [MREF] Stat
[2021-01-14 19:29] VITALS: BP 126/72; PULSE 71
[2021-01-16 12:02] LABS: C.TRACHOMATIS BY TMA Negative (Negative); N.GONORRHOEAE BY TMA Negative (Negative)
== END 2021-01-14 14:30 | disposition home or self-care (01) ==
LOC: MW.ED 10:16
DX: N94.89 Other specified conditions associated with female genital organs and menstrual cycle (principal); R10.32 Left lower quadrant pain; Z91.040 Latex allergy status; Z79.899 Other long term (current) drug therapy
CPT/HCPCS: 74177; 76830; 80053; 81003; 83690; 84703; 85025; 86695; 86696; 87480; 87491; 87510; 87529; 87591; 87660; 96374; 96375; 99284; J1170; J1885; J2405; Q9967

== ENCOUNTER 2023-08-13 07:08 | Day surgery (SDC) | payer OTHER ==
[~2023-08-13 07:08] MED LIST changes: -Glycopyrrolate 0.2 MG/ML SDV ONE; -Lidocaine 2% 5 ML SDV ONE; -Midazolam 1 MG/ML 2 ML SDV ONE; -Neostigmine Methylsulfate 1 MG/ML 5 ML Syringe ONE; -Ondansetron 4 MG/2 ML SDV ONE; -Propofol 200 MG/20 ML SDV ONE; -Rocuronium 100 MG/10 ML Syringe ONE; +ceFAZolin 2 GM in Sodium Chloride 0.9% 50 ML IV ONE; -fentaNYL 250 MCG/5 ML SDV ONE
[2023-08-13] MEDS ORDERED: droPERidol 5 MG/2 ML SDV IVPUSH PRN (07:33)
[2023-08-13] MEDS ORDERED: Metoclopramide 10 MG/2 ML SDV IVPUSH PRN (07:33)
[2023-08-13] MEDS ORDERED: fentaNYL 50 MCG/ML SDV IVPUSH PRN (07:33)
[2023-08-13] MEDS ORDERED: Morphine 2 MG/ML SYRINGE IVPUSH PRN (07:33)
[2023-08-13] MEDS ORDERED: HYDROmorphone 1 MG/ML Syringe IVPUSH PRN (07:33)
[2023-08-13] MEDS ORDERED: Ondansetron 4 MG/2 ML SDV IVPUSH PRN (07:33)
[2023-08-13] MEDS ORDERED: Naloxone 0.4 MG/ML SDV IVPUSH PRN (07:33)
[2023-08-13] MEDS ORDERED: Albuterol 0.083% 2.5 MG/3 ML Neb Soln NEB PRN (07:33)
[2023-08-13] MEDS: Lactated Ringers 1,000 ML IV SCH (07:41)
[2023-08-13] MEDS ORDERED: Propofol 200 MG/20 ML SDV ONE (09:06)
[2023-08-13] MEDS ORDERED: dexmedeTOMIDine HCl 200 MCG/2 ML SDV ONE (09:07)
[2023-08-13] MEDS ORDERED: fentaNYL 100 MCG/2 ML SDV ONE (09:07)
[2023-08-13] MEDS ORDERED: Water For Injection, Sterile 20 ML ONE (09:07)
[2023-08-13] MEDS ORDERED: Lidocaine 1% 20 ML MDV ONE (09:30)
[2023-08-13] MEDS ORDERED: Bupivacaine 0.25% 30 ML SDV ONE (09:30)
[2023-08-13] MEDS ORDERED: ceFAZolin 2 GM Vial ONE (09:33)
[2023-08-13 13:58] VITALS: BP 105/49; PULSE 76
== END 2023-08-13 10:39 | disposition home or self-care (01) ==
LOC: MW.SDS 07:08
PROVIDERS: ATTEND Orthopaedic Surgery
DX: G56.01 Carpal tunnel syndrome, right upper limb (principal); I10 Essential (primary) hypertension; F41.9 Anxiety disorder, unspecified; F17.210 Nicotine dependence, cigarettes, uncomplicated; Z79.899 Other long term (current) drug therapy; Z91.040 Latex allergy status
CPT/HCPCS: 64721; 81025; J0665; J0690; J2704; J3010; J7120; 01810; J3490

== ENCOUNTER 2024-08-26 13:39 | Emergency (ER) | payer MEDICAID ==
[2024-08-26 14:07] VITALS: BP 130/91; PULSE 116
[2024-08-26] MEDS: Sodium Chloride 0.9% 1,000 ML IV ONE (14:27)
[2024-08-26] MEDS: Alum Hydrox/Mag Hydrox/Simeth 15 ML, Metoclopramide 5 MG, Lidocaine 2% 5 ML PO ONE (14:28)
[2024-08-26 14:35] LABS: BASOPHILS ABSOLUTE AUTO 0.05 K/uL (0.00-0.20); BASOPHILS PERCENT AUTO 0.4 % (0.0-1.0); EOSINOPHILS ABSOLUTE AUTO 0.06 K/uL (0.00-0.45); EOSINOPHILS PERCENT AUTO 0.5 % (0.0-6.0); HEMATOCRIT 40.3 % (37.0-47.0); HEMOGLOBIN 14.5 g/dL (12.0-16.0); IMMATURE GRAN ABSOLUTE AUTO 0.06 K/uL (0.00-0.05); IMMATURE GRAN PERCENT AUTO 0.5 % (0.0-0.4); LYMPHOCYTES ABSOLUTE AUTO 2.31 K/uL (1.00-4.80); LYMPHOCYTES PERCENT AUTO 19.1 % (24.0-44.0); MEAN CORPUSCULAR HEMOGLOBIN 37.5 pg (28.0-32.0); MEAN CORPUSCULAR VOLUME 104.1 fL (83.0-99.0); MONOCYTES ABSOLUTE AUTO 1.03 K/uL (0.00-0.80); MONOCYTES PERCENT AUTO 8.5 % (0.0-8.0); NEUTROPHILS ABSOLUTE AUTO 8.56 K/uL (1.80-7.70); PLATELET COUNT,PLT 348 K/uL (150-400); RED BLOOD CELL COUNT 3.87 M/uL (4.10-5.30); WHITE BLOOD CELL COUNT,WBC 12.07 K/uL (3.9-11.3)
[2024-08-26 15:11] LABS: ALBUMIN 3.7 g/dL (3.4-5.0); BILIRUBIN TOTAL 0.7 mg/dL (0.2-1.0); CALCIUM 9.6 mg/dL (8.5-10.1); CARBON DIOXIDE,CO2 22.4 mmol/L (21.0-32.0); CREATININE 1.1 mg/dL (0.6-1.0); EST CRCL DRUG DOSING (CG) 59.34 mL/min; POTASSIUM,K 2.8 mmol/L (3.5-5.1); PROTEIN TOTAL,TP 7.5 g/dL (6.4-8.2)
[2024-08-26 15:27] LABS: APPEARANCE,URINE CLEAR; BILIRUBIN,URINE NEGATIVE (NEGATIVE); COLOR,URINE YELLOW; GLUCOSE,URINE NEGATIVE (NEGATIVE); KETONES,URINE NEGATIVE (NEGATIVE); LEUKOCYTE ESTERASE,URINE NEGATIVE (NEGATIVE); NITRITE,URINE NEGATIVE (NEGATIVE); OCCULT BLOOD,URINE NEGATIVE (NEGATIVE); PROTEIN,URINE NEGATIVE (NEGATIVE); UROBILINOGEN,URINE 0.2 EU/dL (<2.0)
[2024-08-26] MEDS: Potassium Chloride 20 MEQ Tab.ER PO ONE (15:29)
[2024-08-26] MEDS: Ondansetron 4 MG/2 ML SDV IVPUSH ONE (15:29)
[2024-08-26] MEDS: Ketorolac 30 MG/ML SDV IVPUSH ONE (15:30)
[2024-08-26] MEDS: LORazepam 2 MG/ML SDV IVPUSH ONE (15:30)
[2024-08-26 15:36] LABS: AMPHETAMINES SCREEN, URINE PRESUMPTIVE POSITIVE (CUTOFF=500); BARBITURATE SCREEN,URINE NEGATIVE (CUTOFF=200); BENZODIAZEPINES SCREEN,URINE PRESUMPTIVE POSITIVE (CUTOFF=150); BUPRENORPHINE SCREEN,URINE NEGATIVE (CUTOFF=10); METHADONE SCREEN, URINE NEGATIVE (CUTOFF=200); METHAMPHETAMINES SCREEN, URINE NEGATIVE (CUTOFF=500); OXYCODONE SCREEN,URINE NEGATIVE (CUT0FF=100); PCP SCREEN,URINE NEGATIVE (CUTOFF=25); THC SCREEN,URINE 20 NG/ML PRESUMPTIVE POSITIVE (CUTOFF=50)
[2024-08-26] MEDS: Iopamidol 755 MG/ML 500 ML Multipack Bottle IVPUSH STA (16:15)
== END 2024-08-26 17:01 | disposition home or self-care (01) ==
LOC: MW.ED 13:39
DX: E87.6 Hypokalemia (principal); F19.10 Other psychoactive substance abuse, uncomplicated; R10.13 Epigastric pain; I10 Essential (primary) hypertension; Z91.040 Latex allergy status; Z88.8 Allergy status to other drugs, medicaments and biological substances; Z79.899 Other long term (current) drug therapy
CPT/HCPCS: 36415; 71045; 71275; 80053; 80305; 81003; 83605; 83690; 84484; 85025; 85379; 93005; 96361; 96374; 96375; 99285; A9270; J1885; J2060; J2405; J7030; Q9967; 93010